=== PATIENT | male | born 1980 | race Caucasian/White ===

== ENCOUNTER 2019-09-21 11:18 | Emergency (ER) | payer SELFPAY ==
[~2019-09-21] VITALS: Ht 177.8 cm; Wt 90.7 kg
[2019-09-21 13:50] VITALS: BP 129/86
[2019-09-21] MEDS ORDERED: LIDOCAINE 1% HCL (LOCAL ANESTH.) INJ 20ML MDV IJ ONE (14:45)
== END 2019-09-21 15:34 | disposition home or self-care (01) ==
LOC: ER 11:18
DX: S61.211A Laceration without foreign body of left index finger without damage to nail, initial encounter (principal); X58.XXXA Exposure to other specified factors, initial encounter; Y93.89 Activity, other specified; Y92.89 Other specified places as the place of occurrence of the external cause; Y99.8 Other external cause status
CPT/HCPCS: 12001; 73140; 99283; J2001